=== PATIENT | female | born 1985 | race Caucasian/White ===

== ENCOUNTER 2024-11-26 08:06 | Outpatient (AMB) | payer MEDICARE, SELFPAY ==
--- NOTE | 2024-11-26 08:17 | A.OFFVIS_ITS ---
Vital Signs 11/26/24 08:51 Weight 142 lb BP 108/75 Blood Pressure Location Rt brachial Position Sitting Pulse 80 Pulse Source Palpation Intake Visit Reasons: Follow up, Discuss MRI Accompanied by: Mother Allergies Codeine Sulfate Allergy (Unknown, Uncoded 01/29/11 00:00) Ibuprofen Allergy (Unknown, Uncoded 01/29/11 00:00) Medication List - Last Reconciled 11/26/[address] CNP buprenorphine-naloxone 8-2 mg (Suboxone) 1 film buccal DAILY dextroamphetamine-amphetamine 10 mg (Adderall) 10 mg PO BID sumatriptan succinate 50 mg PO Q2-4H PRN tizanidine 4 mg PO BID PRN Is last menstrual period known: Yes (3 weeks ago ) Patient : No HPI Comments Details: Teresa is a 38-year-old female patient with a past medical history of opiate use disorder (severity approximately 9-10 years on Suboxone), ADHD, asthma, fatty liver disease, migraine, and mild Chiari 1 malformation with decompression surgery in July of 2023 at [facility]. Leading up to her Chiari decompression she reported occipital headaches, dizziness, and imbalance. Postoperatively after her Chiari decompression surgery in 2003, she developed a CSF leak. This was repaired in November of 2023. She has continue to follow at [facility] though were be sent evaluations have not been suggestive of any continued complications. I saw her last at [facility] at which time she reported improvement in her brain fog and headaches over the course of a month leading up to our visit. She did however continued to have some difficulties with sleep and had some ongoing fatigue in the morning. She was experiencing some residual diz ziness with positional changes. She was started on gabapentin 100 mg at bedtime with gradual increase to 100 mg 3 times daily. This was ordered in caution with combination Suboxone therapy. She had her most recent follow-up in September of 2024 at which time she reported again that headaches did continue but were less severe than prior. She did continue with a sense of brain fog during the day and headaches again were primarily occipital radiating to the front of her head. She reported some pain to the mid back area and had been working with primary Care to obtain x-ray imaging. At this most recent visit I started her on magnesium 400 mg nightly and continue the gabapentin. I also started a trial of tizanidine 4 mg twice daily for potential myofascial involvement. She is here today at [facility] to reestablish care with me in this facility. Sensitivity [facility] visit in September of 2024, Today she reports that she has good days and bad days . She is referred [facility] to [facility] who performed an MRI of her spine. She notes that they reported to her that she has a seroma on her spine and she was recommended to follow-up with neurosurgery. She has not yet seen neurosurgery to follow-up with this but [facility] did send a referral and imaging reports back to them. True headaches a couple times per week about 2 times per week but she feels that she can control them by rest and relaxation. They will then subside on their own typically but rarely will they last a few days. She used to take sumatriptan in the past which was helpful. Still sometimes having lightheadedness with dull headache.Headaches are accompanied by irratability, nausea, as well as light and sound sensitivity. She also notes that from time to time she has abnormal sensations to her BUE such as tingling and feelings of vibration. She does not have weakness or pain. She also has circumoral numbness which can extend to the right nares area. Review of Systems Const Reports as per HPI Neuro Reports Sensory deficit (Neuro) Physical Exam Const General: cooperative, healthy appearing, comfortable and no acute distress Nutritional Appearance: well nourished Orientation/consciousness: patient oriented x3 Limitations: no limitations HEENT Head: Yes normal to inspection and Yes normocephalic Eyes General: appearance normal, both eyes and all related structures Visual Walsh: normal visual walsh by confrontation Alignment and Position: alignment normal Periorbital: periorbital findings normal Eyelids: Yes eyelids normal Conjunctivae: conjunctivae normal Back/Spine/Pelvis Cervical Spine: Cervical spine scars present and other (tenderness to the c- spine midline with palpation ) Neuro General: patient oriented x3, tone normal and deep tendon reflexes 2+ bilaterally Cranial nerves: Yes CN's II-XII intact bilaterally Cognition (Neuro): normal cognition Gait exam (Neuro): Normal gait present Motor exam (neuro): 5/5 motor strength present throughout and no tremor noted Sensory Exam: Sensory deficit (Neuro) and Upper extremity sensory exam abnormal (BUE paresthesia with light touch ) Romberg Test: Negative Pupils: Normal pupillary reactivity/response: bilateral Psych Appearance: grossly normal Mental Status: mental status grossly normal Speech and movement: Normal speech and movement present and Clear speech present Affect: normal affect Attitude: cooperative Thought process: Normal thought process present Thought content: Normal thought content present Insight: Good insight present (Psych) Judgement: Good judgement present (Psych) Assessment & Plan Assessment & Plan (1) Occipital headache: Code(s): R51.9 - Headache, unspecified Category: Medical Plan: . (2) Neck pain after neck surgery: Code(s): M96.89 - Other intraoperative and postprocedural complications and disorders of the musculoskeletal system; M54.2 - Cervicalgia Category: Medical Plan: . Plan Teresa is a 38-year-old female patient with a past medical history of opiate use disorder (severity approximately 9-10 years on Suboxone), ADHD, asthma, fatty liver disease, migraine, and mild Chiari 1 malformation with decompression surgery in July of 2023 at [facility]. At this point, it seems possible but not clear if the seroma is playing a role in her symptoms. She also has a great deal of scar tissue to her neck area which may be causing some myofascial discomfort. Tizanidine has been helpful and I will continue her on this for management of myofascial involvement which may be triggering migraine/neck pain. I will also restart her on sumatriptan 50 mg for breakthrough migraine. It does seem like she may be having some vestibular migraine symptoms which maybe helped with use of sumatriptan. We could in the future consider starting her on a preventive therapy. I am hoping that [facility] sees her soon to evaluate the seroma. I will also attempt to obtain [facility] so I can review the study myself. -Follow-up with [facility] neurosurgery for seroma -Continue tizanidine 4mg -Re-start sumatriptan 50mg for breakthrough migraine -obtain imaging from [facility] Follow-up in 3 months Orders: Orders Folate Today R20.2 - Paresthesia of skin Methylmalonic Acid Today M54.2 - Cervicalgia, M96.89 - Other intraoperative and postprocedural complications and disorders of the musculoskeletal system Vitamin B12 Today M54.2 - Cervicalgia, M96.89 - Other intraoperative and postprocedural complications and disorders of the musculoskeletal system Coding Level of Care Code New Pt Level 4 (95904) Diagnoses Occipital headache R51.9 Neck pain after neck surgery M96.89; M54.2
--- OUTSIDE RECORDS SUMMARY | 2024-11-26 08:24 | XMS_ITS | Clinical Summary ---
Author Organization [facility] Address [address] [place] [address] Care Team Providers Care Turret Lathe Operator Name Role Phone Unavailable Primary Care Provider Unavailabl e Source Comments PLEASE NOTE, if this patient is a minor, it may be UNLAWFUL to discuss sensitive information that is contained in these records (such as FAMILY PLANNING, MENTAL HEALTH or SUBSTANCE ABUSE) with the minor patient's parent or other person without the patient's specific authorization.[facility] Allergies Active Allergy Reactions Criticality Noted Date Comments Ibuprofen 04/02/2013 Naproxen Sodium 04/02/2013 Medications albuterol sulfate hfa 90 mcg/actuation inhalerIndicatio ns:Mild intermittent asthma without complication (HHS-HCC) Inhale 2 Puffs into the lungs every 4 (four) hours as needed for wheezing. 1 Inhaler 3 02/14/20 16 Active budesonide-formo terol (SYMBICORT) 160-4.5 mcg/actuation inhalerIndicatio ns:Mild intermittent asthma without complication (HHS-HCC) Inhale 2 Puffs into the lungs 2 (two) times daily. 1 Inhaler 3 02/14/20 16 Active nebulizer accessoriesIndic ations:Mild intermittent asthma without complication (HHS-HCC) Use up to 4 times daily 1 Device 0 02/14/20 16 Active albuterol (ACCUNEB) 0.63 mg/3 mL nebulizer solutionIndicati ons:Mild intermittent asthma without complication (HHS-HCC) Take 3 mL by nebulization every 6 (six) hours as needed for wheezing. 50 Vial 2 02/14/20 16 Active montelukast (SINGULAIR) 10 mg tabletIndication s:Mild intermittent asthma without complication (HHS-HCC) Take 1 Tab by mouth nightly at bedtime. 30 Tab 5 02/14/20 16 Active hydrocortisone (ANUSOL-HC) 25 mg suppositoryIndic ations:External thrombosed hemorrhoids Place 1 Suppository rectally 2 (two) times daily 30 Suppository 2 08/08/19 17 Active triamcinolone (KENALOG) 0.025 % ointmentIndicati ons:Eczema of both hands Apply topically 2 (two) times daily 15 g 2 08/08/19 17 Active shark liver oil-cocoa butter (PREPARATION H) 0.25-3 % suppositoryIndic ations:Therapeut ic opioid induced constipation Place 1 Suppository rectally as needed for hemorrhoids 12 Suppository 5 08/10/19 17 Active sennosides-docus ate sodium (SENOKOT-S) 8.6-50 mg per tabletIndication s:Constipation due to opioid therapy Take 1 Tab by mouth once daily as needed for constipation 30 Tab 3 10/07/19 18 Active Active Problems Problem Noted Date Diagnosed Date Opioid abuse with unspecifie d opioid-induced disorder (CMS & HHS-HCC) 03/04/2016 Mild intermittent asthma without complication (H HS-HCC) 03/04/2016 Fatty infiltration of liver 03/31/2015 Overview (03/31/2015): CT Scan 03/24/2015 S/P cholecystectomy 10/01/2013 Social History Tobacco Use Types Packs/Day Years Used Date Smoking Tobacco: Former Alcohol Use Standard Drinks/Week Comments No 0 (1 standard drink = 0.6 oz pur e alcohol) Social Connections Answer Date Recorded Social Connections and Isolation 0 11/07/2018 Financial Resource Strain Answer Date R ecorded Financial Resource Strain 0 2018 Stress Answer Date Recorded Stress 0 11/07/2018 Physical Activity Answer Date Recorded Physical Activity 0 11/07/2018 Food Insecurity Answer Date Recorded Food 0 11/07/2018 Transportation Needs Answer Date Record ed Transportation 0 11/07/2018 Housing Stability Answer Date Recorded Housing 0 11/07/2018 Safety and Environment Answer Date Shola rded Safety 0 11/07/2018 Utilities Answer Date Recorded Utilities 0 11/07/2018 Employment Answer Date Recorded Employment 0 11/07/2018 Comments No Sex and Gender Information Value Date Recorded Sex Assigned at Not on file Legal Sex Female 11:36 AM PDT Gender Identity Not on file Sexual Orientation Not on file Last Filed Vital Signs Vital Sign Reading Time Taken Comments Blood Pressure 102/68 08/07/2016 3:38 PM EDT Pulse 76 08/07/2016 3:38 PM EDT Temperature 37.1 C (98.8 F) 08/07/2016 3:38 PM EDT Respiratory Rate 16 08/07/2016 3:38 PM EDT Oxygen Saturation - - Inhaled Oxygen Concentration - - Weight 56.2 kg (124 lb) 08/07/2016 3:38 PM EDT Height 149.9 cm (4' 11 ) 08/07/2016 3:38 PM EDT Body Mass Index 25.04 08/07/2016 3:38 PM EDT Plan of Treatment Not on file [place]
--- OUTSIDE RECORDS SUMMARY | 2024-11-26 08:24 | XMS_ITS | Encounter Summary ---
Author Organization [facility] Address [address] [place] [address] Care Team Providers Care Flume Worker Name Role Phone Lara Arteaga MD Primary Care Pr ovider Reason for Visit * Reason Onset Date Comments Breast Pain 11/24/2024 Encounter Details Date Type Department Care Team (Late st Contact Info) Description 11/24/2024 Telephone Adult Medicine [address] [phone] Lara Arteaga MD [address] [place] [address] Social History Tobacco Use Types Packs/Day Years Used Date Smoking Tobacco: Former Smokeless Tobacco: Never Alcohol Use Standard Drinks/Week Comments Yes 0 (1 standard drink = 0.6 oz pur e alcohol) Housing Instability Answer Date Recorde d Are you worried that in the next 2 months you may not have stable housing? No 03/26/2024 Food Access & Nutrition Answer Date Rec orded Do you have access to a vari ety of food including fruits and vegetables? Yes 03/26/2024 Health Literacy Answer Date Recorded How often do you need to hav e someone help you when you read instructions, pamphlets, or other written material from your doctor or pharmacy? Never 03/26/2024 Caregiver: How often do you need to have someone help you when you read instructions, pamphlets, or other written material from your doctor or pharmacy? Not on file 03/26/2024 Financial Risk Answer Date Recorded How hard is it for you to pa y for the very basics like food, housing, medical care, and air conditioning / heating? Not very hard 03/26/2024 Transportation Answer Date Recorded Has the lack of transportati on kept you from meetings, work, or from getting things needed for daily living? No Has the lack of transportati on kept you from medical appointments or from getting medications? No 03/26/2024 Social Isolation Answer Date Recorded How often do you feel lonely or isolated from th ose around you? Never 03/26/2024 Food Risk Answer Date Recorded Within the past 12 months we worried whether our food would run out before we got money to buy more. Never true 03/26/2024 Within the past 12 months th e food we bought just didn't last and we didn't have money to get more. Never true 03/26/2024 Dependent Care Answer Date Recorded Do you need help finding or paying for care for your loved ones. For example, childcare attendant or elderly care for an older adult? No 03/26/2024 Education Answer Date Recorded Do you think completing more education or training, like finishing a GED, going to college, or learning a trade, would be helpful for you? No 03/26/2024 Employment and Income Answer Date Recor ded During the last four weeks, have you been actively looking for work? No 03/26/2024 Living Situation Answer Date Recorded What is your living situation? 0 03/26/2024 Comments No Sex and Gender Information Value Date Recorded Sex Assigned at Not on file Legal Sex Female 12:18 AM EST Gender Identity Not on file Sexual Orientation Not on file documented as of this encounter Progress Notes * Lucinda Ames - 11/24/2024 8:44 AM EDT Patient call requires triage: Symptoms patient is presenting: left breast pain How long has patient had these symptoms?: 3 days For ALL patients calling to schedule any appointment (routine, sick visit, follow up, consult, etc.) in the outpatient setting please ask the following questions: Do you have fever of higher than 101, sore throat with difficulty swallowing or severe shortness ofbreath? no If YES to any of these above symptoms, send a message to triage and do not book. Red dot. If no, an audio or video visit should be booked. Have you had close contact with someone with Coronavirus in the last 14 days? no Have you traveled abroad? no Have you traveled recently to another state outside of [place], [place], [place], [place], [place], [place], [place]? no o If yes, did you quarantine for 14 days or have a negative covid test? no If yes to any of the above, patient is not to be scheduled in office until after 14 day quarantine or negative covid test. If pain or injury related was it due to an accident at work or from a motor vehicle accident? If yes, date of accident/Injury: No If yes, gather 3rd green party insurance information Third Alliance Party Information: N/A PCP: Lara Arteaga MD Payor: [facility] MEDICARE / Plan: [employer] ONE CARE / Product Type: *No Product type* / documented in this encounter Plan of Treatment Upcoming Encounters Date Type Department Care Team (Late st Contact Info) Description 12/07/2024 5:00 PM EDT Office [facility] [address] [place], [place] [phone] Kalia Busch MD [address] [place], [place] 12/15/2024 8:20 AM EDT Office Visit Gastroenterology - [place] [address] [place] [phone] Vasquez Grove MD [address] [place] [phone] documented as of this encounter Visit Diagnoses Not on filedocumented in this encounter Additional Health Concerns Assessment Noted Time PHQ-9 Depression Total Score: 0 04/14/19 25 10:40 AM EST documented as of this encounter Care Teams Flume Worker Relationship Specialty Start Date End Date Lara Arteaga MD [address] [place] [phone] PCP - General 04/09/22 documented as of this encounter
--- OUTSIDE RECORDS SUMMARY | 2024-11-26 08:24 | XMS_ITS | Clinical Summary ---
Author Organization [address] [facility] Address [address] [place] [address] Phone Care Team Providers Care Timekeeping Supervisor Name Role Phone Lara Arteaga MD Primary Care Pr ovider Allergies Active Allergy Reactions Criticality Noted Date Comments Codeine Nausea And Vomiting High 12/08/2008 Can take percocet ok Ibuprofen Anaphylaxis High 02/14/2006 Other Reaction(s): Hives/Urticaria, Numbness, tingling or swelling of the lips, tongue or mouth HIVES/ ? THROAT CLOSING? Naproxen Anaphylaxis High 04/02/2013 Other Reaction(s): Hives/Urticaria, Numbness, tingling or swelling of the lips, tongue or mouth Medications SUMAtriptan (IMITREX) 50 mg tablet May repeat dose once after 2 hours, if needed. 4 Active amphetamine-de xtroamphetamin e (ADDERALL) 10 mg tablet Take 1 Tablet by mouth 2 times daily. 1 tab po bid Active fluticasone furoate (ARNUITY ELLIPTA) 100 mcg/actuation blister with device inhaler Inhale 1 puff by mouth 1 (one) time each day. 1 each 4 01/19/20 25 Active Ventolin HFA 90 mcg/actuation inhaler INHALE 2 PUFFS BY MOUTH EVERY 4 HOURS NEEDED FOR WHEEZING OR SHORTNESS OF BREATH 18 g 5 Active omeprazole (PriLOSEC) [address] capsule Take 1 capsule (20 mg total) by mouth 1 (one) time each day. Active guanFACINE (INTUNIV) 1 mg 24 Hour ER tablet Take 1 tablet (1 mg total) by mouth 1 (one) time each day. 5 Active gabapentin (NEURONTIN) 100 mg capsule Take 1 capsule (100 mg total) by mouth at bedtime. 5 Active diazePAM (VALIUM) 5 mg tablet Take 1 tablet (5 mg total) by mouth at bedtime as needed. Active tiZANidine (ZANAFLEX) 4 mg tablet Take 1 tablet (4 mg total) by mouth 2 (two) times a day. 5 Active buprenorphine- naloxone (SUBOXONE) 8-[address] film [address] 1 film under the tongue 1 (one) time each day for 28 days. After the medication is completely dissolved, take a large sip of water, swish it around teeth and gums, and swallow. Wait at least 1 hour before brushing teeth to avoid damage to your teeth. Max Daily Amount: 1 film 28 each 5 12/08/19 25 Active buprenorphine- naloxone (SUBOXONE) 8-[address] SL film [address] 1 film under the tongue 1 (one) time each day for 28 days. After the medication is completely dissolved, take a large sip of water, swish it around teeth and gums, and swallow. Wait at least 1 hour before brushing teeth to avoid damage to your teeth. Max Daily Amount: 1 film 28 each 5 11/10/19 25 Discontinu ed(Reorder ) Active Problems Problem Noted Date Diagnosed Date Osteoarthritis of cervical spine with myelopathy 09/27/2024 Assessment & Plan (09/27/2024 12:51 PM EDT): See HPI. She will call [facility] to schedule an appointment Osteoarthritis of thoracic spine with myelopathy 09/27/2024 Assessment & Plan (09/27/2024 12:51 PM EDT): See HPI. She will call [facility] to schedule an appointment Osteoarthritis of lumbar spine with myelopathy 0 09/27/2024 Assessment & Plan (09/27/2024 12:51 PM EDT): See HPI. She will call [facility] to schedule an appointment Obesity (BMI 30.0-34.9) 04/14/2024 Assessment & Plan (09/27/2024 12:51 PM EDT): Encouraged to increase her exercise at least 30 minutes a day 5 days a week. Discussed that we have weight management at [facility] and she can be referred if she is interested. She would like to defer this for now and start exercising Assessment & Plan (04/14/2024 12:39 PM EST): Orders: Ambulatory referral to Nutrition Services; Future Hemoglobin A1c; Future Flat feet, bilateral 01/19/2024 Chiari I malformation (CMS/HCC V24, CMS/HCC V28) 11/12/2022 Overview (12/16/2023): MRI brain 10/09/22 ordered by Neurology Last Assessment & Plan: Ms. Valentine describes a multitude of complaints from migraines and brain fog with numbness and tingling in the hands and feet, dizziness, and electrical sensations traveling down her arms. Her MRI of the brain from [facility] on October 09, 2022 shows a Chiari I malformation with 5 to 6 mm of cerebellar tonsillar distention through the foramen magnum and some crowding of the brainstem. I told her I would review her films and story with Dr. Romero to see whether or not she thought a suboccipital craniectomy for Chiari decompression was reasonable. I told her I would be back in touch with her after discussing the situation with the doctor. Assessment & Plan (09/27/2024 12:51 PM EDT): Continue follow-up with [facility] neurology. Has an upcoming appointment this week Assessment & Plan (04/14/2024 12:39 PM EST): See HPI. She was in the emergency room on 03/26/2024 at [facility]. I do not have complete records for review but will addend my note once I do. MRI brain/CT angio head and neck which were done were reportedly negative. She notes she has already had follow-up with her neurosurgeon in [place] and was told no MR myelogram was indicated. I do not have notes from the neurosurgeon. She will follow-up with her neurologist at [facility] as scheduled next month. She will continue the baclofen as needed which she is using sparingly due to the medication making her feel sleepy. Will complete handicap placard for patient. She will drop off form Opioid abuse ([facility] V24, [facility] V28) 11/06/19 Overview (12/16/2023): Heroin- sober 2 years 03/2018 on suboxone 09/19/20: Suboxone 10mg daily through [facility] Assessment & Plan (09/27/2024 12:51 PM EDT): Continue with Suboxone daily. Continue follow-up with Dr. Busch Assessment & Plan (04/14/2024 12:39 PM EST): Continue with Suboxone as prescribed by Dr. Busch Chronic constipation 11/05/2017 Asthma 03/04/2016 Assessment & Plan (09/27/2024 12:51 PM EDT): Well-controlled. She has Arnuity(not using this daily) and albuterol to use as needed. Fatty liver 03/31/2015 Overview (12/16/2023): CT Scan 03/24/2015 PCOS (polycystic ovarian syndrome) 09/21/2007 Overview (12/16/2023): 10/23/20 Early glucose screen ordered. Migraine 10/16/2006 Assessment & Plan (09/27/2024 12:51 PM EDT): Continue sumatriptan as needed. Continue follow-up with [facility] neurology. Has an upcoming appointment this week Bipolar disorder ([facility] V24, [facility] V28) 06/15 Attention deficit hyperactivity disorder (ADHD) 06/25/2006 Assessment & Plan (09/27/2024 12:51 PM EDT): Ciontinue f/u with psychiatry Prescribed adderall,guanfacine and valium Heartburn 11/13/2005 Assessment & Plan (09/27/2024 12:51 PM EDT): Continue omeprazole 20 mg as needed Resolved Problems Problem Noted Date Diagnosed Date Resolved Date Back pain 12/22/2008 09/27/2024 Encounters Date Type Department Care Team Description 11/24/2024 Telephone Adult Medicine [address] [phone] Lara Arteaga MD 11/17/2024 9:20 AM EDT Consult Gastroenterology [address] [phone] Vasquez Grove MD Fatty liver (Primary Dx); PCOS (polycystic ovarian syndrome); Opioid abuse ([facility] V24, [facility] V28); History of cholecystectomy 11/17/2024 Telephone Gastroenterology [facility] [address] [phone] Vasquez Grove MD 11/12/2024 [place] [facility] [address] [phone] Manda Meng [place] 11/09/2024 5:00 PM EDT Office Visit [facility] [address] [place] [phone] Kalia Busch MD Drug dependence, in remission ([facility]/HCC V24, CMS/[facility] V28) (Primary Dx) 10/27/2024 8:29 AM EDT - 10/27/2024 11:59 PM EDT Hospital Encounter [facility] MRI [address] [place] [phone] Elevated bilirubin; RUQ pain; Common bile duct dilation Discharge Disposition: Home or Self Care 10/21/2024 8:24 AM EDT - 10/21/2024 11:59 PM EDT Hospital Encounter Ultrasound - [facility] [address] [place], [place] [phone] Elevated bilirubin; RUQ pain Discharge Disposition: Home or Self Care 10/12/2024 5:15 PM EDT Office Visit [facility] - [facility] [address] [place], [place] [phone] Kalia Busch MD Drug dependence, in remission ([facility] V24, [facility] V28) (Primary Dx) 09/27/2024 12:00 PM EDT Office Visit Adult Medicine [address] [phone] Lara Arteaga MD Annual physical exam (Primary Dx); Screening for metabolic disorder; Obesity (BMI 30.0-34.9); Opioid abuse ([facility] V24, [facility] V28); Chiari I malformation ([facility] V24, [facility] V28); Migraine without aura and without status migrainosus, not intractable; Mild persistent asthma without complication; Osteoarthritis of cervical spine with myelopathy; Osteoarthritis of thoracic spine with myelopathy; Osteoarthritis of lumbar spine with myelopathy; Irritation of ear, bilateral; Otalgia of both ears; Right wrist pain; Pain in both knees, unspecified chronicity; Heartburn; Other specified attention deficit hyperactivity disorder (ADHD); Encounter for screening mammogram for malignant neoplasm of breast 09/22/2024 3:05 PM EDT - 09/22/2024 11:59 PM EDT Hospital Encounter [address] [phone] Chronic neck pain Discharge Disposition: Home or Self Care 09/22/2024 3:05 PM EDT - 09/22/2024 11:59 PM EDT Hospital Encounter [address] [phone] Chronic back pain, unspecified back location, unspecified back pain laterality Discharge Disposition: Home or Self Care 09/22/2024 3:04 PM EDT - 09/22/2024 11:59 PM EDT Hospital Encounter [address] [phone] Chronic back pain, unspecified back location, unspecified back pain laterality Discharge Disposition: Home or Self Care 09/22/2024 2:15 PM EDT Office Visit Adult Medicine [address] [phone] Mary Grimes PA Skin lesion of face (Primary Dx); Chronic neck pain; Chronic back pain, unspecified back location, unspecified back pain laterality; Chiari I malformation ([facility] V24, [facility] V28) 09/09/2024 5:15 PM EDT Office Visit [facility]one - [facility] [address] [place], [place] [phone] Kalia Busch MD Drug dependence, in remission ([facility] V24, [facility] V28) (Primary Dx) from Last 3 Months Immunizations Name Administration Dates Next Due Influenza Quadravalent, MDCK , 0.5ml, preservative free (Flucelvax) 6mo and older 04/09/2022 Influenza trivalent, with pr eservative (Fluzone; Afluria) 6mo and older 01/05/2014,03/04/2006,01/24/2005 PPD Test 12/17/2005 Pneumococcal polysaccharide 23 valent (Pneumovax 23) 2yo and older 04/09/2022 Td Tetanus diptheria (Tdvax) 7yo and older 11/15 Tdap Tetanus diptheria acell ular pertussis (Boostrix; Adacel) 7yo and older 02/20/2021 Surgical History Surgery Date Site/Laterality Comments WRIST SURGERY 2003 Right PROCEDURE: HISTORICAL WRIST SURGERY; COMMENT: injury CHOLECYSTECTOMY 2009 PROCEDURE: HISTORICAL CHOLECYSTECTOMY MOUTH SURGERY PROCEDURE: ORAL SURGERY PROCEDURE; COMMENT: teeth extractions. Medical History Medical History Date Comments Heartburn 11/13/2005 DX:Heartburn Attention deficit disorder w ith hyperactivity(314.01) 06/25/2006 DX:Attention deficit disorde r with hyperactivity(314.01) Bipolar disorder, unspecifie d ([facility] V24, [facility] V28) 06/25/2006 DX:Bipolar disorder, unspec ified ([facility]) Migraine without aura, witho ut mention of intractable migraine without mention of status migrainosus 10/16/2006 DX:Migraine with out aura, without mention of intractable migraine without mention of status migrainosus PCOS (polycystic ovarian syndrome) 09/21/2007 DX:PCOS (polycystic ovarian syndrome) Sacroiliitis, not elsewhere classified ([facility] V24) 11/02/2008 DX:Sacroiliitis, not elsewhe re classified ([facility]) Chronic constipation 11/05/2017 DX:Chronic constipation Family history of breast cancer 04/15/2018 DX:Family history of breast cancer Heroin use disorder, severe, in sustained remission ([facility] V24, [facility] V28) DX:Heroin use disorder, lilibeth re, in sustained remission ([facility]) H/O thoracic outlet syndrome DX: H/O thoracic outlet syndrome; COMMENT: sees physiatry prn Asthma DX:Asthma History of posttraumatic str ess disorder (PTSD) DX:History of posttraumatic stress disorder (PTSD); COMMENT: has counselor (PTSD from bad relationship in 2007) BRCA negative DX:BRCA negative Family History Medical History Relation Name Comments Other: endometriosis Aunt maternal and mat ernal 1st cousin Hypertension Father obesity, GERD, KAREN, gout Lung cancer Maternal Grandfather with me ts to liver; alcohol abuse Hypertension Maternal Grandmother HLD, de pression Breast cancer Mother left 22 (lumpe ctomy), age 50 (surgery/radiation), and again 58 (surgery), ALL LEFT SIDE; HTN, HLD, GERD Breast cancer Mother's side great aunt Dx 40-50's? l aterality? Heart failure Paternal Grandfather Alzheimer's disease Paternal Grandmother COPD Migraines Sister PCOS Hypertension Uncle 1 maternal DVT Other cancer Uncle 2 paternal unknown type Colon cancer Neg Hx Relation Name Status Comments Aunt maternal Alive Father Alive Maternal Grandfather (Age 60) Maternal Grandmother Alive Mother Alive BRCA negative Mother's side great aunt Paternal Grandfather Paternal Grandmother (Age 86) Sister Alive Uncle 1 maternal Alive Uncle 2 paternal Social History Tobacco Use Types Packs/Day Years Used Date Smoking Tobacco: Former Smokeless Tobacco: Never Tobacco Cessation:Counseling Given: Not Answered Alcohol Use Standard Drinks/Week Comments Yes 0 [...] care for your loved ones. For example, children counselor or elderly care for an older adult? [...] on file Sexual Orientation Not on file Obstetrics History Last Filed Vital Signs Vital Sign Reading Time Taken Comments Blood Pressure 112/72 11/17/2024 9:21 AM EDT Pulse 74 11/17/2024 9:21 AM EDT Temperature 36.4 C (97.5 F) 11/09/2024 5:50 PM EDT Respiratory Rate 16 09/27/2024 12:01 PM EDT Oxygen Saturation 98% 10/12/2024 5:23 PM EDT Inhaled Oxygen Concentration - - Weight 64 kg (141 lb) 11/17/2024 9:21 AM EDT Height 149.9 cm (4' 11 ) 11/17/2024 9:21 AM EDT Body Mass Index 28.48 11/17/2024 9:21 AM EDT Plan of Treatment Upcoming Encounters Date Type Department Care Team (Late st Contact Info) Description 12/07/2024 5:00 PM EDT Office Visit [facility] [address] [place], [place] [phone] Kalia Busch MD [address] [place], [place] 12/15/2024 8:20 AM EDT Office Visit Gastroenterology - [place] [address] [place] [phone] Vasquez Grove MD [address] [place] [phone] Health Maintenance Due Date Last Done Comments Medicare Annual Wellness Visit 02/23/2022 COVID-19 Vaccine ( season) 2024 Influenza Vaccine (#1) 2024 , 01/05/2014, 03/04/2006, Additional history exists Social Influencers of Health Screening 03/26/2025 03/26/2024 Cervical Cancer Screening: HPV 11/03/2025 11/03/2020 Cholesterol Screening (Lipid Panel) 09/29/2029 09/29/2024, 01/06/2024, 05/08/2022 DTaP,Tdap,and Td Vaccines (4 - Td or Tdap) 02/20/2031 02/20/2021, 03/12/2015, 11/16/2003 HIV Screening Completed 10/27/2020 Pneumococcal Vaccine: Pediatrics (0 to 5 Years) and At-Risk Patients (6 to 49 Years) Discontinued 04/09/2022 Depression Screening Completed 04/14/2024 Hepatitis C Screening Completed 11/17/2024, 021 HIB Vaccines Aged Out No longer eligi ble based on patient's age to complete this topic HPV Vaccines Aged Out No longer eligi ble based on patient's age to complete this topic Hepatitis A Vaccines Discontinued Hepatitis B Vaccines Discontinued IPV Vaccines Aged Out No longer eligi ble based on patient's age to complete this topic MMR Vaccines Aged Out No longer eligi ble based on patient's age to complete this topic Meningococcal ACWY Vaccine Aged Out N o longer eligible based on patient's age to complete this topic Meningococcal B Vaccine Aged Out No l onger eligible based on patient's age to complete this topic RSV Immunization Patients Under 20 months Aged Out No longer eligible based on patient's age to complete this topic Varicella Vaccines Aged Out No longer eligible based on patient's age to complete this topic Procedures Procedure Name Priority Date/Time Associated Diagnosis Comments HEPATITIS PANEL, ACUTE WITH REFLEX TO CONFIRMATION Routine 11/17/2024 10:00 AM EDT Fatty liver PROTHROMBIN TIME WITH INR Routine 11/17/2024 10:00 AM EDT Fatty liver HEPATIC FUNCTION PANEL Routine 10:00 AM EDT Hyperbilirubinemia POC , URINE DIAGNOSTIC Routine 11/09/2024 6:02 PM EDT Drug dependence, in remission (CMS/HCC V24, CMS/HCC V28) POC URINE DRUG SCREEN Routine 11/09/2024 6:02 PM EDT Drug dependence, in remission (CMS/HCC V24, CMS/HCC V28) MR ABDOMEN WO AND W CONTRAST MRCP Routine 10/27/2024 10:04 AM EDT Elevated bilirubin RUQ pain Common bile duct dilation US ABDOMEN LIMITED Routine 10/21/2024 8: 53 AM EDT Elevated bilirubin RUQ pain POC , URINE DIAGNOSTIC Routine 10/12/2024 5:31 PM EDT Drug dependence, in remission (CMS/HCC V24, CMS/HCC V28) POC URINE DRUG SCREEN Routine 10/12/2024 5:30 PM EDT Drug dependence, in remission (CMS/HCC V24, CMS/HCC V28) CBC WITH AUTO DIFFERENTIAL Routine 09/29/2024 9:08 AM EDT Screening for metabolic disorder LIPID PANEL WITH REFLEX TO DIRECT LDL Routine 09/29/2024 9:08 AM EDT Screening for metabolic disorder CBC AND DIFFERENTIAL Routine 09/29/2024 9:08 AM EDT Screening for metabolic disorder COMPREHENSIVE METABOLIC PANEL Routine 09/29/2024 9:08 AM EDT Screening for metabolic disorder XR LUMBAR SPINE 4+ VIEWS Routine 09/22/2024 3:18 PM EDT Chronic back pain, unspecified back location, unspecified back pain laterality XR THORACIC SPINE 2 VIEWS Routine 09/22/2024 3:18 PM EDT Chronic back pain, unspecified back location, unspecified back pain laterality XR CERVICAL SPINE 4-5 VIEWS Routine 09/22/2024 3:18 PM EDT Chronic neck pain POC , URINE DIAGNOSTIC Routine 09/09/2024 5:18 PM EDT Drug dependence, in remission (CMS/HCC V24, CMS/HCC V28) POC URINE DRUG SCREEN Routine 09/09/2024 5:18 PM EDT Drug dependence, in remission (CMS/HCC V24, CMS/HCC V28) HM HPV Routine 11/03/2020 HM HIV SCREENING Routine 10/27/2020 from Last 3 Months or Most Recently Relevant to Health Maintenance Results * Hepatitis panel, acute with reflex to confirmation (11/17/2024 10:00 AM EDT) [facility] Hepatitis B Surface Ag Negative Negative LAB CHEMISTRY METHOD 11/17/2024 5:43 PM EDT [facility] Hepatitis A Antibody IgM Negative Negative LAB CHEMISTRY METHOD 11/17/2024 5:43 PM EDT [facility] Hep B Core IgM Negative Negative LAB CHEMISTRY METHOD 11/17/2024 5:43 PM EDT [facility] Hepatitis C Antibody Negative Negative LAB CHEMISTRY METHOD 11/17/2024 5:43 PM EDT [facility] Blood Venous blood specimen / Unknown Venipuncture / Unknown 11/17/2024 10:00 AM EDT 11/17/2024 10:00 AM EDT us Vasquez Grove MD LAB BLOOD ORDERABLES Final Resul t Performing Organization Address City/[facility]/ZIP Co de Phone Number [facility] [address] [place] [address], [place] [phone] * Prothrombin time with INR (11/17/2024 10:00 AM EDT) [facility] Protime 12.1 10.6 - 13.9 sec LAB COAGULATION METHOD 11/17/2024 2:17 PM EDT [facility] INR 1.0 LAB COAGULATION METHOD 11/17/2024 2:17 PM EDT [facility] Blood Venous blood specimen / Unknown Venipuncture / Unknown 11/17/2024 10:00 AM EDT 11/17/2024 10:00 AM EDT us Vasquez Grove MD LAB BLOOD ORDERABLES Final Resul t [facility] [address] [place] [address], [place] [phone] * (ABNORMAL) Hepatic function panel (11/17/2024 10:00 AM EDT) Total Protein 7.1 6.0 - 8.0 g/dL LAB CHEMISTRY METHOD 11/17/2024 3:29 PM EDT [facility] Albumin 4.0 3.2 - 5.0 g/dL LAB CHEMISTRY METHOD 11/17/2024 3:29 PM EDT [facility] Total Bilirubin 1.7(H) 0.0 - 1.4 mg/dL LAB CHEMISTRY METHOD 11/17/2024 3:29 PM EDT [facility] Bilirubin, Direct 0.4(H) 0.0 - 0.3 mg/dL LAB CHEMISTRY METHOD 11/17/2024 3:29 PM EDT [facility] Bilirubin, Indirect 1.3(H) 0.0 - 1.1 mg/dL LAB CHEMISTRY METHOD 11/17/2024 3:29 PM EDT [facility] ALT (SGPT) 40 10 - 60 unit/L LAB CHEMISTRY METHOD 11/17/2024 3:29 PM [facility] AST (SGOT) 36 10 - 42 unit/L LAB CHEMISTRY METHOD 11/17/2024 3:29 PM EDT [facility] Alkaline Phosphatase 55 42 - 121 unit/L LAB CHEMISTRY METHOD 11/17/2024 3:29 PM T [facility] Blood Venous blood specimen / Unknown Venipuncture / Unknown 11/17/2024 10:00 AM EDT 11/17/2024 10:00 AM EDT Lara Arteaga MD LAB BLOOD ORDERA BLES Final Result [facility] [address] [place] [address], * (ABNORMAL) POC Urine Drug Screen (11/09/2024 6:02 PM EDT) Only the most recent of3 resultswithin the time period is included. Amphetamine Screen, Ur POC Negative Negative Barbituates, Ur POC Negative Negative Benzodiazepines, Ur POC Negative Negative Buprenorphine, Ur POC Positive(A) Negative Cocaine, Ur POC Negative Negative MDMA Ur POC Negative Negative Methamphetamine Screen, Ur POC Negative Negative Methadone, Ur POC Negative Negative Opiate Scrn, Ur POC Negative Negative Oxycodone Scrn, Ur POC Negative Negative PCP, Ur POC Negative Negative THC, Ur POC Negative Negative Temperature, Ur POC 94 Urine Urine specimen obtained by clean catch procedure / Unknown 11/09/2024 6:02 PM EDT us Kalia Busch MD POINT OF CARE TEST ENTER/EDIT OR DERABLES Final Result * POC , urine manually resulted (11/09/2024 6:02 PM EDT) Only the most recent of3 resultswithin the time period is included. HCG, Ur POC Negative Negative POC hCG Int QC Pass? Yes Yes Urine Urine specimen obtained by clean catch procedure / Unknown 11/09/2024 6:02 PM EDT us Kalia Busch MD POINT OF CARE TEST ENTER/EDIT OR DERABLES Final Result * MR Abdomen wo and w Contrast MRCP (10/27/2024 10:04 AM EDT) Anatomical Region Laterality Modality Body Magnetic Resonan ce 10/27/2024 12:3 1 PM EDT Impressions 10/27/2024 12:52 PM EDT Cholecystectomy. Unchanged biliary duct dilatation dating back to 2016, most related to postcholecystectomy reservoir effect. No choledocholithiasis or obstructing mass. Severe hepatic steatosis. -------- FINAL REPORT -------- Dictated By: DONN DELUNA Dictated Date: 10/27/2024 12:31 ET Assigned Physician: DONN DELUNA Reviewed and Electronically Signed By: DONN DELUNA Signed Date: 10/27/2024 12:52 ET Workstation ID: [id number] Transcribed By: Self Edit Transcribed Date: 10/27/2024 12:31 ET Narrative 10/27/2024 12:52 PM EDT PROCEDURE: Abdominal MRI INDICATION: Dilated duct, elevated bilirubin TECHNIQUE: Multiplanar, multisequence MRI of the abdomen without and with contrast. 15 mL Dotarem injected intravenously from a 15 mL vial with the remainder discarded. COMPARISON: Ultrasound 10/21/[address] 03/24/2015 FINDINGS: Severe hepatic steatosis with regions of geographic relative sparing. No focal liver lesions or abnormal hepatic enhancement. Cholecystectomy. Biliary duct dilatation without obstructing stone or mass. Common bile duct measures up to 12 mm, similar dating back to 2015. No pancreatic mass or ductal dilatation. There is fatty infiltration of the pancreatic head. Spleen and adrenal glands are normal. Kidneys are normal. Abdominal aorta is normal in size. Portal vein is patent. Small left-sided duplicated IVC partially imaged. No bowel obstruction or wall thickening. Large stool throughout the colon. No ascites or fluid collection. Visualized intrathoracic structures and superficial soft tissues are normal. Bones are normal. Procedure Note Donn Deluna MD - 10/27/2024 PROCEDURE: Abdominal MRI INDICATION: Dilated duct, elevated bilirubin TECHNIQUE: Multiplanar, multisequence MRI of the abdomen without and withcontrast. 15 mL Dotarem injected intravenously from a 15 mL vial with theremainder discarded. COMPARISON: Ultrasound 10/21/[address] 03/24/2015 FINDINGS: Severe hepatic steatosis with regions of geographic relative sparing. Nofocal liver lesions or abnormal hepatic enhancement. Cholecystectomy. Biliary duct dilatation without obstructing stone ormass. Common bile duct measures up to 12 mm, similar dating back [id number]. No pancreatic mass or ductal dilatation. There is fatty infiltration ofthe pancreatic head. Spleen and adrenal glands are normal. Kidneys are normal. Abdominal aorta is normal in size. Portal vein is patent. Smallleft-sided duplicated IVC partially imaged. No bowel obstruction or wall thickening. Large stool throughout thecolon. No ascites or fluid collection. Visualized intrathoracic structures and superficial soft tissues arenormal. Bones are normal. IMPRESSION: Cholecystectomy. Unchanged biliary duct dilatation dating back to 2015,most related to postcholecystectomy reservoir effect. Nocholedocholithiasis or obstructing mass. Severe hepatic steatosis. -------- FINAL REPORT -------- Dictated By: DONN DELUNA Dictated Date: 10/27/2024 12:31 ET Assigned Physician: DONN DELUNA Reviewed and Electronically Signed By: DONN DELUNA Signed Date: 10/27/2024 12:52 ET Workstation ID: [id number] Transcribed By: Self Edit Transcribed Date: 10/27/2024 12:31 ET us Lara Arteaga MD IMG MRI PROCEDUR ES Final Result * US Abdomen Limited (10/21/2024 8:53 AM EDT) Anatomical Region Laterality Modality Body Ultrasound 10/21/2024 1:52 PM EDT Impressions 10/21/2024 1:55 PM EDT 1. Hepatic steatosis 2. Prominence of the common bile duct measuring 1.7 cm which may be due to removal of gallbladder. In a patient with elevated bilirubin, MRI/MRCP abdomen can also be considered to evaluate for biliary system. -------- FINAL REPORT -------- Dictated By: Maicol Nash Dictated Date: 10/21/2024 13:52 ET Assigned Physician: Maicol Nash Reviewed and Electronically Signed By: Maicol Nash Signed Date: 10/21/2024 13:55 ET Workstation ID: [id number] Transcribed By: Self Edit Transcribed Date: 10/21/2024 13:52 ET Narrative 10/21/2024 1:55 PM EDT Exam: Right upper quadrant ultrasound/US Limited History: elevated bilirubin, RUQ Pain Technique: Marinelli scale and color Doppler imaging was utilized. Comparison: None FINDINGS: Liver: increasedin echotexture. The liver measures 16.8 cm.There is no evidence of intrahepatic biliary ductal dilation. There is no ascites. Gallbladder: status post cholecystectomy Common bile duct: measures 1.7 cm. Right kidney: measures 10.6 cm and is sonographically unremarkable Pancreas: The visualized pancreatic parenchyma is unremarkable. The pancreatic head and tail were not visualized due to overlying bowel gas. Procedure Note Maicol Nash MD - 10/21/2024 Exam: Right upper quadrant ultrasound/US Limited History: elevated bilirubin, RUQ Pain Technique: Marinelli scale and color Doppler imaging was utilized. Comparison: None FINDINGS: Liver: increasedin echotexture. The liver measures 16.8 cm.There is noevidence of intrahepatic biliary ductal dilation. There is no ascites. Gallbladder: status post cholecystectomy Common bile duct: measures 1.7 cm. Right kidney: measures 10.6 cm and is sonographically unremarkable Pancreas: The visualized pancreatic parenchyma is unremarkable. Thepancreatic head and tail were not visualized due to overlying bowel gas. IMPRESSION: 1. Hepatic steatosis 2. Prominence of the common bile duct measuring 1.7 cm which may be due toremoval of gallbladder. In a patient with elevated bilirubin, MRI/MRCPabdomen can also be considered to evaluate for biliary system. -------- FINAL REPORT -------- Dictated By: Maicol Nash Dictated Date: 10/21/2024 13:52 ET Assigned Physician: Maicol Nash Reviewed and Electronically Signed By: Maicol Nash Signed Date: 10/21/2024 13:55 ET Workstation ID: [id number] Transcribed By: Self Edit Transcribed Date: 10/21/2024 13:52 ET us Lara Arteaga MD IMG US PROCEDURE S Final Result * Lipid panel with reflex to direct LDL (09/29/2024 9:08 AM EDT) Cholesterol 139 0 - 200 mg/dL LAB CHEMISTRY METHOD 09/29/2024 4:00 PM EDT [facility] Triglycerides 78 0 - 150 mg/dL LAB CHEMISTRY METHOD 09/29/2024 4:00 PM EDT [facility] HDL 58 >=40 mg/dL LAB CHEMISTRY METHOD 09/29/2024 4:00 PM EDT [facility] LDL Calculated 65 0 - 100 mg/dL LAB CHEMISTRY METHOD 09/29/2024 4:00 PM EDT [facility] VLDL Cholesterol Raul 15.6 mg/dL LAB CHEMISTRY METHOD 09/29/2024 4:00 PM EDT [facility] Non HDL Chol. (LDL+VLDL) 81 <145 mg/dL LAB CHEMISTRY METHOD 09/29/2024 4:00 PM EDT [facility] Chol/HDL Ratio 2.4 0.0 - 4.4 LAB CHEMISTRY METHOD 09/29/2024 4:00 PM EDT [facility] Blood Venous blood specimen / Unknown Venipuncture / Unknown 09/29/2024 9:08 AM EDT 09/29/2024 9:09 AM EDT Lara Arteaga MD LAB BLOOD ORDERA BLES Final Result [facility] [address] [place] [address], * CBC auto differential (09/29/2024 9:08 AM EDT) WBC 5.8 4.8 - 10.8 K/mcL LAB HEMETOLOGY METHOD 09/29/2024 1:31 PM [facility] RBC 4.60 3.80 - 4.80 M/mcL LAB HEMETOLOGY METHOD 09/29/2024 1:31 PM EDT [facility] Hemoglobin 13.6 11.5 - 16.0 g/dL LAB HEMETOLOGY METHOD 09/29/2024 1:31 PM EDT [facility] Hematocrit 40.8 35.0 - 47.0 % [facility] MCV 88.1 79.0 - 98.0 FL LAB HEMETOLOGY METHOD 09/29/2024 1:31 PM [facility] MCH 29.4 27.0 - 32.0 pcg LAB HEMETOLOGY METHOD 09/29/2024 1:31 PM EDT [facility] MCHC 33.3 32.0 - 37.0 g/dL LAB HEMETOLOGY METHOD 09/29/2024 1:31 PM [facility] RDW 13.2 11.0 - 15.0 % LAB HEMETOLOGY METHOD 09/29/2024 1:31 PM [facility] Platelets 244 130 - 400 K/mcL LAB HEMETOLOGY METHOD 09/29/2024 1:31 PM [facility] MPV 9.2 7.0 - 11.0 FL LAB HEMETOLOGY METHOD 09/29/2024 1:31 PM [facility] NRBC 0.0 <1.0 % LAB HEMETOLOGY METHOD 09/29/2024 1:31 PM [facility] NRBC Absolute 0.00 <0.10 K/mcL LAB HEMETOLOGY METHOD 09/29/2024 1:31 PM [facility] Neutrophils Relative 42.5 % LAB HEMETOLOGY METHOD 09/29/2024 1:31 PM [facility] Lymphocytes Relative 40.9 % LAB HEMETOLOGY METHOD 09/29/2024 1:31 PM [facility] Monocytes Relative 12.8 % LAB HEMETOLOGY METHOD 09/29/2024 1:31 PM [facility] Eosinophils Relative 2.9 % LAB HEMETOLOGY METHOD 09/29/2024 1:31 PM [facility] Basophils Relative 0.7 % LAB HEMETOLOGY METHOD 09/29/2024 1:31 PM [facility] Immature Granulocytes Relative 0.2 % LAB HEMETOLOGY METHOD 09/29/2024 1:31 PM [facility] Neutrophils Absolute 2.47 1.50 - 7.00 K/mcL LAB HEMETOLOGY METHOD 09/29/2024 1:31 PM EDT [facility] Lymphocytes Absolute 2.37 1.00 - 5.00 K/[facility] LAB HEMETOLOGY METHOD 09/29/2024 1:31 PM EDT [facility] Monocytes Absolute 0.74 0.20 - 1.00 K/[facility] LAB HEMETOLOGY METHOD 09/29/2024 1:31 PM EDT [facility] Eosinophils Absolute 0.17 0.00 - 0.50 K/[facility] LAB HEMETOLOGY METHOD 09/29/2024 1:31 PM EDT [facility] Basophils Absolute 0.04 0.00 - 0.20 K/[facility] LAB HEMETOLOGY METHOD 09/29/2024 1:31 PM EDT [facility] Immature Granulocytes Absolute 0.01 0.00 - 0.03 K/[facility] LAB HEMETOLOGY METHOD 09/29/2024 1:31 PM EDT [facility] Blood Venous blood specimen / Unknown Venipuncture / Unknown 09/29/2024 9:08 AM EDT 09/29/2024 9:09 AM EDT Lara Arteaga MD LAB BLOOD ORDERA BLES Final Result [facility] [address] [place] [address], * (ABNORMAL) Comprehensive metabolic panel (09/29/2024 9:08 AM EDT) Sodium 140 133 - 145 mmol/L LAB CHEMISTRY METHOD 09/29/2024 4:00 PM EDT [facility] Potassium 3.9 3.5 - 5.5 mmol/L LAB CHEMISTRY METHOD 09/29/2024 4:00 PM EDT [facility] Chloride 106 96 - 110 mmol/L LAB CHEMISTRY METHOD 09/29/2024 4:00 PM [facility] CO2 28 21 - 32 mmol/L LAB CHEMISTRY METHOD 09/29/2024 4:00 PM [facility] Anion Gap 6 3 - 11 LAB CHEMISTRY METHOD 09/29/2024 4:00 PM [facility] Glucose 98 70 - 100 mg/dL LAB CHEMISTRY METHOD 09/29/2024 4:00 PM [facility] BUN 13 5 - 25 mg/dL LAB CHEMISTRY METHOD 09/29/2024 4:00 PM [facility] Creatinine 0.92 0.50 - 1.10 mg/dL LAB CHEMISTRY METHOD 09/29/2024 4:00 PM [facility] eGFR 82 >=60 mL/min/1. 73m2 LAB CHEMISTRY METHOD 09/29/2024 4:00 PM [facility] Comment:Calculation based on the Chronic Kidney Disease Epidemiology Collaboration (CKD-EPI) equation refit without adjustment for race. BUN/Creatinine Ratio 14.1 LAB CHEMISTRY METHOD 09/29/2024 4:00 PM [facility] Calcium 9.1 8.5 - 10.5 mg/dL LAB CHEMISTRY METHOD 09/29/2024 4:00 PM [facility] AST (SGOT) 40 10 - 42 unit/L LAB CHEMISTRY METHOD 09/29/2024 4:00 PM [facility] ALT (SGPT) 50 10 - 60 unit/L LAB CHEMISTRY METHOD 09/29/2024 4:00 PM [facility] Alkaline Phosphatase 60 42 - 121 unit/L LAB CHEMISTRY METHOD 09/29/2024 4:00 PM [facility] Total Protein 7.2 6.0 - 8.0 g/dL LAB CHEMISTRY METHOD 09/29/2024 4:00 PM [facility] Albumin 3.9 3.2 - 5.0 g/dL LAB CHEMISTRY METHOD 09/29/2024 4:00 PM EDT [facility] Total Bilirubin 1.8(H) 0.0 - 1.4 mg/dL LAB CHEMISTRY METHOD 09/29/2024 4:00 PM EDT [facility] Blood Venous blood specimen / Unknown Venipuncture / Unknown 09/29/2024 9:08 AM EDT 09/29/2024 9:09 AM EDT Lara Arteaga MD LAB BLOOD ORDERA BLES Final Result [facility] [address] [place] [address], [place] [phone] * XR Lumbar Spine 4+ Views (09/22/2024 3:18 PM EDT) Anatomical Region Laterality Modality Spine, L-spine Radiographic Estefania ging 09/22/2024 3:43 PM EDT Impressions 09/22/2024 3:45 PM EDT Mild degenerative changes as described. -------- FINAL REPORT -------- Dictated By: Lidia Islas Dictated Date: 09/22/2024 15:43 ET Assigned Physician: Lidia Islas Reviewed and Electronically Signed By: Lidia Islas Signed Date: 09/22/2024 15:45 ET Workstation ID: [id number] Transcribed By: Self Edit Transcribed Date: 09/22/2024 15:43 ET Narrative 09/22/2024 3:45 PM EDT LUMBOSACRAL SPINE, 4 VIEWS INCLUDING OBLIQUES, Standing HISTORY: Low back pain. FINDINGS: There is normal alignment of the lumbosacral spine. No fractures are seen. There is mild endplate spurring at L3-4 and L4-5. There is mild facet hypertrophy at L5-S1. There are surgical clips in the right upper quadrant. Procedure Note Lidia Islas MD - 09/22/2024 LUMBOSACRAL SPINE, 4 VIEWS INCLUDING OBLIQUES, Standing HISTORY: Low back pain. FINDINGS: There is normal alignment of the lumbosacral spine. No fractures areseen. There is mild endplate spurring at L3-4 and L4-5. There is mild facet hypertrophy at L5-S1. There are surgical clips in the right upper quadrant. IMPRESSION: Mild degenerative changes as described. -------- FINAL REPORT -------- Dictated By: Lidia Islas Dictated Date: 09/22/2024 15:43 ET Assigned Physician: Lidia Islas Reviewed and Electronically Signed By: Lidia Islas Signed Date: 09/22/2024 15:45 ET Workstation ID: [id number] Transcribed By: Self Edit Transcribed Date: 09/22/2024 15:43 ET Mary ESCALANTE IMG XR PROCEDURES Final Resul t * XR Thoracic Spine 2 Views (09/22/2024 3:18 PM EDT) Anatomical Region Laterality Modality Spine, T-spine Radiographic Estefania ging 09/22/2024 3:49 PM EDT Impressions 09/22/2024 3:59 PM EDT Minor curvature and degenerative changes. No acute findings. -------- FINAL REPORT -------- Dictated By: Lidia Islas Dictated Date: 09/22/2024 15:49 ET Assigned Physician: Lidia Islas Reviewed and Electronically Signed By: Lidia Islas Signed Date: 09/22/2024 15:59 ET Workstation ID: [id number] Transcribed By: Self Edit Transcribed Date: 09/22/2024 15:49 ET Narrative 09/22/2024 3:59 PM EDT THORACIC SPINE, 2 VIEWS HISTORY: Mid back pain. FINDINGS: There is minor curvature of the thoracic spine. No fractures are seen. Vertebral body heights are maintained. Visualized portions of the lungs are clear. There is minor multilevel anterior endplate spurring. There are surgical clips in the upper abdomen. Procedure Note Lidia Islas MD - 09/22/2024 THORACIC SPINE, 2 VIEWS HISTORY: Mid back pain. FINDINGS: There is minor curvature of the thoracic spine. No fractures are seen. Vertebral body heights are maintained. Visualizedportions of the lungs are clear. There is minor multilevel anterior endplate spurring. There are surgical clips in the upper abdomen. IMPRESSION: Minor curvature and degenerative changes. No acute findings. -------- FINAL REPORT -------- Dictated By: Lidia Islas Dictated Date: 09/22/2024 15:49 ET Assigned Physician: Lidia Islas Reviewed and Electronically Signed By: Lidia Islas Signed Date: 09/22/2024 15:59 ET Workstation ID: [id number] Transcribed By: Self Edit Transcribed Date: 09/22/2024 15:49 ET us Mary ESCALANTE IMG XR PROCEDURES Final Resul t * XR Cervical Spine 4-5 Views (09/22/2024 3:18 PM EDT) Anatomical Region Laterality Modality Spine, C-spine Radiographic Estefania ging 09/22/2024 3:45 PM EDT Impressions 09/22/2024 3:48 PM EDT Mild degenerative changes as described, not significantly changed. -------- FINAL REPORT -------- Dictated By: Lidia Islas Dictated Date: 09/22/2024 15:45 ET Assigned Physician: Lidia Islas Reviewed and Electronically Signed By: Lidia Islas Signed Date: 09/22/2024 15:48 ET Workstation ID: [id number] Transcribed By: Self Edit Transcribed Date: 09/22/2024 15:45 ET Narrative 09/22/2024 3:48 PM EDT CERVICAL SPINE, 4 VIEWS HISTORY: Neck pain. History of Chiari malformation. Prior: Cervical spine 04/14/2018. FINDINGS: There is abnormal configuration of the dens tip, which is angled posteriorly, and this is unchanged. No fracture or dislocation is seen. The paravertebral soft tissues are unremarkable. There is minor endplate spurring at C3-4 and C5-6. There is mild bilateral neural foraminal narrowing from osteophytes at C4-5 and C5-6. Procedure Note Lidia Islas MD - 09/22/2024 CERVICAL SPINE, 4 VIEWS HISTORY: Neck pain. History of Chiari malformation. Prior: Cervical spine 04/14/2018. FINDINGS: There is abnormal configuration of the dens tip, which is angledposteriorly, and this is unchanged. No fracture or dislocation is seen. The paravertebral soft tissues areunremarkable. There is minor endplate spurring at C3-4 and C5-6. There is mild bilateral neural foraminal narrowing from osteophytes atC4-5 and C5-6. IMPRESSION: Mild degenerative changes as described, not significantly changed. -------- FINAL REPORT -------- Dictated By: Lidia Islas Dictated Date: 09/22/2024 15:45 ET Assigned Physician: Lidia Islas Reviewed and Electronically Signed By: Lidia Islas Signed Date: 09/22/2024 15:48 ET Workstation ID: [id number] Transcribed By: Self Edit Transcribed Date: 09/22/2024 15:45 ET Mary ESCALANTE IMG XR PROCEDURES Final Resul t * Cervical Cancer Screening: HPV (11/03/2020) Pathologist [facility] Cervical Cancer Screening: HPV Abstracted ,Negative Historical Provider HEALTH MAINTENANCE Final Result * HIV Screening (10/27/2020) Pathologist [facility] HIV Screening Abstracted Historical Provider HEALTH MAINTENANCE Final Result from Last 3 Months or Most Recently Relevant to Health Maintenance Insurance Member Subscriber Plan / Payer (Ef fective 2022-Present) Name:TERESA VALENTINE Relation to Subscriber:Self Name:Teresa Valentine Payer ID:[id number] Group ID:[id number] Type:Not on file Address: [facility] [address] [id number] Care Teams Timekeeping Supervisor Relationship Specialty Start Date End Date Lara Arteaga MD [address] [place] [address] [phone] PCP - General 04/09/22
[2024-11-26 08:51] VITALS: BP 108/75; PULSE 80
== END 2024-11-26 09:11 | disposition home or self-care (01) ==
LOC: HO.HSM 08:06
PROVIDERS: Visit Provider Nurse Practitioner
DX: R51.9 Headache, unspecified (principal); M96.89 Other intraoperative and postprocedural complications and disorders of the musculoskeletal system; M54.2 Cervicalgia
CPT/HCPCS: 99204

== ENCOUNTER → 2024-11-26 08:06 | Outpatient (BNVA) | payer MEDICARE, SELFPAY | PROVIDERS: Visit Provider Nurse Practitioner | DX: Z71.2 Person consulting for explanation of examination or test findings (principal); M54.2 Cervicalgia; M96.89 Other intraoperative and postprocedural complications and disorders of the musculoskeletal system; R51.9 Headache, unspecified | CPT/HCPCS: 99202 ==

== ENCOUNTER 2025-01-17 13:33 | Outpatient (AMB) | payer OTHER, SELFPAY ==
--- NOTE | 2025-01-17 13:42 | A.OFFVIS_ITS ---
Vital Signs 01/17/25 13:49 Height 4 ft 11 in Weight 139 lb BMI 28.1 BP 118/80 Blood Pressure Location Rt brachial Position Sitting Respiration 16 Pulse 80 Pulse Source Pulse Oximeter Pulse Oximetry (%) 98 Oxygen Delivery Method Room Air Intake Visit Reasons: sooner appt Alcohol Law Enforcement Agent Required: No Accompanied by: Mother Allergies Codeine Sulfate Allergy (Unknown, Uncoded 01/17/25 13:49) Unknown Ibuprofen Allergy (Unknown, Uncoded 01/17/25 13:49) Unknown HPI Comments Details: Teresa is a 38-year-old female patient with a past medical history of opiate use disorder (severity approximately 9-10 years on Suboxone), ADHD, asthma, fatty liver disease, migraine, and mild Chiari 1 malformation with [place] [facility] [place] Leading up to her Chiari decompression she reported occipital headaches, dizziness, and imbalance. Postoperatively after her Chiari decompression surgery in 2023, she developed a CSF leak. This was repaired in November of 2023. She has continue to follow [place] [facility] [place] were be sent evaluations have not been suggestive of any continued complications. I saw her last at [facility] in the spring at which time she reported improvement in her brain fog and headaches over the course of a month leading up to our visit. She did however continued to have some difficulties with sleep and had some ongoing fatigue in the morning. She was experiencing some residual dizziness with positional changes. She was started on gabapentin 100 mg at bedtime with gradual increase to 100 mg 3 times daily. This was ordered in caution with combination Suboxone therapy. She had her most recent follow-up in September of 2024 at which time she reported again that headaches did continue but were less severe than prior. She did continue with a sense of brain fog during the day and headaches again were primarily occipital radiating to the front of her head. She reported some pain to the mid back area and had been working with primary Care to obtain x-ray imaging. At this most recent visit I started her on magnesium 400 mg nightly and continue the gabapentin. I also started a trial of tizanidine 4 mg twice daily for potential myofascial involvement. At the time of her last visit with me at [facility] she explained that she was having some ?good days and bad days?. She was referred back to [facility] who performed an MRI of her spine initially and it was noted she has a seroma of her spine and we had been recommended follow up for this with Neurosurgery. She had not yet seen them at the time of our last visit. She also had reported headaches a couple of times per week though she felt as though she could ?control them and called by rest and relaxation. There were typically subside on their own and rarely will last a few days. Sumatriptan in the past has been helpful. She was experiencing some lightheadedness with irritability, nausea, as well as light and sound sensitivity with her headaches. She also had noted getting some abnormal sensations to her bilateral upper extremities does tingling and feelings of vibration. She denied any weakness or pain. She also had some circumoral numbness which was extending into the area of her right nare. Plan at the time of her last visit: -Follow[place]up [place] [facility] [place] -Continue tizanidine 4mg -Re-start sumatriptan 50mg for breakthrough migraine -obtain imaging from [facility] -Follow-up in 3 months She is here today for a follow up visit after a neurosurgery visit at [facility] to re-evaluate her MRI imaging which includes a cervical seroma. According to the patient today, her Neurosurgery team had no concerns about the seroma however based on description of headaches there was concern raised regarding possibility of elevated intracranial pressure. She did undergo a lumbar puncture with an opening pressure of 27.5. They did not start any oral therapies as they do want to investigate further with imaging studies in efforts to evaluate for the appropriateness of stenting or perhaps ventricular shunt as an alternative to medication options. She has her MRI appointment scheduled for this coming Friday and then we will follow up with Neurosurgery again on the . Headaches since her lumbar puncture have improved slightly though she does still have intermittent headaches described as a pressure sensation and some intermittent blurring of vision/darkening of vision. She also notes that she has had some buzzing and pulsatile tinnitus that has since improved since her lumbar puncture. We did discuss again possibility for Winter-Danlos as playing a role in some of her headaches provided that she has had some myofascial tenderness and has historically been very flexible. She would eventually like to be seen by an Winter-Danlos specialist and consider genetic testing. Review of Systems Const All systems reviewed & are unremarkable except as noted in HPI and below Neuro Reports Sensory deficit (Neuro) Physical Exam Vital Signs: Last Vital Signs Pulse 80 01/17/25 13:49 Resp 16 01/17/25 13:49 BP 118/80 01/17/25 13:49 Pulse Ox 98 01/17/25 13:49 Oxygen Delivery Method Room Air 01/17/25 13:49 BMI result Body Mass Index 28.1 Const General: cooperative, healthy appearing, comfortable and no acute distress Nutritional Appearance: well nourished Orientation/consciousness: patient oriented x3 Limitations: no limitations HEENT Head: Yes normal to inspection and Yes normocephalic Eyes General: appearance normal, both eyes and all related structures Visual Walsh: normal visual walsh by confrontation Alignment and Position: alignment normal Periorbital: periorbital findings normal Eyelids: Yes eyelids normal Conjunctivae: conjunctivae normal Back/Spine/Pelvis Cervical Spine: Cervical spine scars present and other (tenderness to the c- spine midline with palpation ) Neuro General: patient oriented x3, tone normal and deep tendon reflexes 2+ bilaterally Cranial nerves: Yes CN's II-XII intact bilaterally Cognition (Neuro): normal cognition Gait exam (Neuro): Normal gait present Motor exam (neuro): 5/5 motor strength present throughout and no tremor noted Sensory Exam: Sensory deficit (Neuro) and Upper extremity sensory exam abnormal (BUE paresthesia with light touch ) Romberg Test: Negative Pupils: Normal pupillary reactivity/response: bilateral Psych Appearance: grossly normal Mental Status: mental status grossly normal Speech and movement: Normal speech and movement present and Clear speech present Affect: normal affect Attitude: cooperative Thought process: Normal thought process present Thought content: Normal thought content present Insight: Good insight present (Psych) Judgement: Good judgement present (Psych) Assessment & Plan Assessment & Plan (1) Occipital headache: Code(s): R51.9 - Headache, unspecified Category: Medical Plan: . (2) Neck pain after neck surgery: Code(s): M96.89 - Other intraoperative and postprocedural complications and disorders of the musculoskeletal system; M54.2 - Cervicalgia Category: Medical Plan: . (3) IIH (idiopathic intracranial hypertension): Code(s): G93.2 - Benign intracranial hypertension Category: Medical Plan Teresa is a 38-year-old female patient with a past medical history of opiate use disorder (severity approximately 9-10 years on Suboxone), ADHD, asthma, fatty liver disease, migraine, and mild Chiari 1 malformation with decomp[place] July [place] 20[place] [facility] [place] She is following for headaches which may be multifactorial and evolving over time. She originally had migraines and a mild Chiari malformation. After her decompression surgery in July of 2023 she developed a CSF leak and has had intermittent fluctuating headaches. More recently, she had a lumbar puncture showing an elevated opening pressure supporting likelihood of IIH. She is now undergoing further imaging studies to evaluate for structural changes that may be cause for her increased pressure. She was not started on oral therapies and at this point we should hold off on initiating any therapy until she has a imaging which is scheduled for Friday. Historically, tizanidine has been beneficial for her headaches and we can continue this at low dose for now. If she is not a surgical candidate could consider topiramate or acetazolamide for further management. -Contnue low-dose tizanidine -Continue Sumatriptan sparingly -Could consider toipramate 25mg daily for now in the interim -Await further testing from [facility] for tx plan for IIH ([facility] MRI scheduled for this coming Friday) -Eventually would like to consider testing and referral for EDS Coding Level of Care Code Est Pt Level 3 (82757) Diagnoses Occipital headache R51.9 Neck pain after neck surgery M96.89; M54.2 IIH (idiopathic intracranial hypertension) G93.2
[2025-01-17 13:49] VITALS: BP 118/80; PULSE 80; RESP 16; O2SAT 98; BMI 28.1
== END 2025-01-17 14:51 | disposition home or self-care (01) ==
LOC: HO.HSM 13:34
PROVIDERS: Visit Provider Nurse Practitioner
DX: R51.9 Headache, unspecified (principal); M96.89 Other intraoperative and postprocedural complications and disorders of the musculoskeletal system; M54.2 Cervicalgia; G93.2 Benign intracranial hypertension
CPT/HCPCS: 99213

== ENCOUNTER → 2025-01-17 13:33 | Outpatient (BNVA) | payer OTHER, SELFPAY | PROVIDERS: Visit Provider Nurse Practitioner | DX: M51.9 Unspecified thoracic, thoracolumbar and lumbosacral intervertebral disc disorder (principal); M96.89 Other intraoperative and postprocedural complications and disorders of the musculoskeletal system; M54.2 Cervicalgia; G93.2 Benign intracranial hypertension | CPT/HCPCS: 99212 ==

== ENCOUNTER 2025-03-11 08:32 | Outpatient (AMB) | payer OTHER, SELFPAY ==
--- OUTSIDE RECORDS SUMMARY | 2025-03-11 08:34 | XMS_ITS | Data Portability ---
Author Organization [employer] [facility] [facility], [facility] Address [address] [place] [phone] Care Team Providers Care Prepress Operator Name Role Phone ALINEDAVIDROJELIO Primary Care Provider [phone] HIM [facility] OTHER Assessment Encounter Date Assessment Date Assessment LastModified by Organization Details LastModified Time 09/17/2023 09/17/2023 I provided real -time medical direction via phone for this encounter and was available for additional phone-based assistance as needed. I have reviewed and agree with the Assessment and Plan as documented by the Renovator Machine Operator. Patient given the opportunity to ask questions. Our service contacted for an assessment of: cough and upper respiratory symptoms As per above, patient has had a non-productive cough for a day. Denies F/C/N/V/CP/RICHARDSON and SOB. No sick contacts. Taking OTCs without much benefit. Per wax machine operator on the scene, Non-toxic. Stable vitals. No distress. COVID, strep and Flu are all negative. Impression: ? seasonal allergies vs viral URI - differential diagnosis is broad however wax machine operator assessment and limited data are reassuring. Plan: Supportive care and observation. We discussed the diagnostic uncertainty of home visits and the risk associated with this. In this case, the patient and I felt this to be an acceptable and reasonable amount of risk given the benefit of avoiding an ED visit. We discussed the need to seek care urgently/emergentl y in the setting of any new or worsening serious symptoms, particularly fever chills lightheadedness altered mental status [place] [id number] Not available 09/17/2023 11:18:56 Plan of Treatment Reminders Order Date Submit Date Provider Last Modified By Organization Details Last Modified Time Details Appointments None recorded. Lab rapid flu (A+B) 2023 024 [email or web address] [facility], [address] [place] [address], [phone] 4 11:05:50 rapid SARS CoV 2 Ag, QL IA, respiratory specimen [address], [phone] 4 11:05:51 rapid strep group A, throat [address], [phone] 4 11:05:48 Referral None recorded. Procedures None recorded. Surgeries None recorded. Imaging None recorded. Medication Orders None recorded. Patient TargetsNo targets recorded. Patient InstructionsNo instructions recorded. Reason for Referral None Reported. Results Created Date Observation Date Name Description Value Unit Range Abnormal Flag Note LastModifiedBy Organization Detail LastModifiedTime 09/17/1909/17/2023 rapid strep group A, throa t Strep negati ve Not Available [facility] ed [address] [place] [address], [id number] 09/17/2023 11:05:17 09/17/19 24 09/17/2023 rapid SARS CoV 2 Ag, QL IA, respi rator y speci men rapid SARS CoV 2 Ag, QL IA, respiratory specimen negati ve Not Available [facility] ed [address] [place] [address], [phone] 09/17/2023 11:05:16 09/17/19 24 09/17/2023 rapid flu (A+B) Flu negati ve Not Available [address], [phone] 09/17/2023 11:05:14 Result Notes None recorded. Medical Equipment None Reported. Allergies No known drug allergies Medications Name Sig Start Date Stop Date Status Note LastModified by Organization Details LastModified Time dextroampheta mine-amphetam ine 10 mg tablet TAKE 1 TABLET BY MOUTH TWICE DAILY AND 0.5 TABLET EVERY AFTERNOON active Not Available Not Available No t Available medroxyproges terone 5 mg tablet TAKE 1 TABLET BY MOUTH DAILY FOR 10 DAYS WHEN NO MENSES FOR 3 MONTHS active Not Available Not Available No t Available sumatriptan 50 mg tablet TAKE 1 TABLET BY MOUTH NEEDED MAY REPEAT DOSE ONCE AFTER 2 HOURS IF NEEDED active Not Available Not Available No t Available valacyclovir 500 mg tablet TAKE 2 TABLETS BY MOUTH THREE TIMES DAILY FOR 7 DAYS active Not Available Not Available No t Available acyclovir 800 mg tablet TAKE 1 TABLET BY MOUTH FIVE TIMES DAILY FOR 7 DAYS active Not Available Not Available No t Available magnesium oxide 400 mg (241.3 mg magnesium) tablet TAKE 1 TABLET BY MOUTH DAILY active Not Available Not Available No t Available dexamethasone 2 mg tablet active Not Available Not Available Not Available triamcinolone acetonide 0.1 % topical ointment APPLY TOPICALLY TO THE AFFECTED AREA TWICE DAILY FOR 14 DAYS active Not Available Not Available No t Available omeprazole 20 mg capsule,delay ed release active Not Available Not Available N ot Available ondansetron 4 mg disintegratin g tablet active Not Available Not Available Not Available diazepam 5 mg tablet active Not Available Not Available Not Available oxycodone 5 mg tablet active Not Available Not Available No t Available hydroxyzine pamoate 25 mg capsule TAKE 1 CAPSULE BY MOUTH THREE TIMES DAILY NEEDED FOR ANXIETY OR SLEEP active Not Available Not Available No t Available buprenorphine 8 mg-naloxone [address] ONE FILM UNDER TONGUE EVERY DAY active Not Available Not Available No t Available riboflavin (vitamin B2) 400 mg tablet TAKE 1 TABLET BY MOUTH DAILY active Not Available Not Available No t Available Vitals Date Recorded Heart rate Oxygen saturation Body temperature Respiratory rate Body weight Body height Systolic And Diastolic Provider Name and Address Organization Details Last Updated DateTime 4 84 /min 98 % 98.4 [degF] 14 /min 73488.8 g 162.56 cm 120/87 mm[Hg] Not Available [email or web address] production 4 10:57:42 Social History None recorded. Functional Status None recorded. Mental Status None recorded. Family History Nothing Reported. Medical History No medical history recorded. Gynecological HistoryNo gynecological history recorded. Obstetrics History GPAL:G 0 P 0 0 0 0 Past Encounters Encounter ID Performer Location Encounter Start Date Encounter Closed Date Diagnosis/Indication Diagnosis SNOMED-CT Code Diagnosis ICD10 Code Diagnosis IMO Codes Diagnosis Note [id number] Maggie Spain MD [facility] [address] [place] [phone] 09/17/2023 10:57:39 09/17/2023 16:58:22 Inflammatory disorder of upper respiratory tract 388865763 J39.9 Viral uppe r respiratory tract infection [id number] J06.9 Health Concerns Section Related Observation LastModified by Organization Detai ls LastModified Time None Recorded Concern Status LastModified by Organization Details LastModified Time None Recorded Advance Directives Directive None Recorded Payers Insurance Date Sequence Insurance Name Policy Number Policy Wilhelm Covered Member ID Wilhelm Member ID Guarantor Name 09/17/2023 1 [facility] - DOS ON OR AFTER 2022 - DUAL ELIGIBLE - [facility] [employer] AND ONE [employer] (MEDICARE REPLACEMENT/AD VANTAGE - HMO) Teresa Valentine [id number] Teresa Valentine Notes Date Note Type Note Provider Name and Address Organization Details Recorded Time 09/17/2023 text/html [facility] Nurse Triage Notes (Emil Abrams): Reason For Request: sore throat/nausea Chief Complaints: ENT, Weakness/Lethargy Allergies: Unknown Comments: Supervising Librarian verified the member's name//address and phone number. Education provided on the response time and the member was advised to monitor reported s/s and seek emergency treatment if needed.CP reports the member is feeling unwell with a sore throat/congestion with nausea - Low grade fever -Weakness - Denies V/D - Denies CP and SOB - S/S started last night. Wellness check requested Renovator Machine Operator POC Test Results from [facility] - ALS Rapid COVID antigen (10:24:38) COVID: + Rapid influenza antigen (10:24:40) Flu: - Rapid strep test (10:24:41) Strep: + .................. .................. .................. .................. .................. .................. .................. ............... Renovator Machine Operator Note From [facility]: Patient conscious alert and oriented times three seated on couch. Patient complains of nausea and sore throat times 12 hours. Patient states her toddler is just getting over a cold. Patient denies difficulty breathing, chest pain, vomiting, diarrhea, weakness abdominal pain, headache, or any other pain or complaints.Patient warm and dry secondary exam unremarkable. Oral pharynx normal with no red or white spotsPatient negative for Covid flu and strep. [facility] suggests patient take prescribed Zofran on hand post surgery x8 weeks ago and watch for other symptoms. BRAT diet, hydration and supportive care discussed. Red flags discussed, patient with family member. .................. .................. .................. .................. .................. .................. .................. ............... Disposition: Fulfilled Maggie Spain MD [address] [facility],[address], [place], [phone], [employer] [facility] [employer] [facility] [employer] 09/17/2023 18:59:52 OBGyn Episode No OBEpisode recorded.
--- OUTSIDE RECORDS SUMMARY | 2025-03-11 08:34 | XMS_ITS | Clinical Summary ---
Author Organization 175 [facility] Address [address] [facility] [address] Phone Care Team Providers Care Ice Skater Name Role Phone Lara Arteaga MD Primary [...] 1 (one) time each day. 1 each 12 4 Active Ventolin HFA 90 mcg/actuation inhaler INHALE [...] Daily Amount: 1 film 28 each 5 03/31/19 26 Active buprenorphine- naloxone (SUBOXONE) 8-2 mg per [...] Daily Amount: 1 film 28 each 5 03/03/20 25 Discontinu ed(Reorder ) Active Problems Problem Noted Date Diagnosed Date Gilbert's syndrome 12/15/2024 History of cholecystectomy 12/15/2024 Osteoarthritis of cervical spine with myelopathy 09/27/2024 Assessment & Plan (09/27/2024 12:51 PM EDT): See HPI. She will call [facility] to schedule an appointment Osteoarthritis of thoracic spine with myelopathy 09/27/2024 Assessment & Plan (09/27/2024 12:51 PM EDT): See HPI. She will call [facility] to schedule an appointment Osteoarthritis of lumbar spine with myelopathy 0 09/27/2024 Assessment & Plan (09/27/2024 12:51 PM EDT): See HPI. She will call [facility] to schedule an appointment Obesity (BMI 30.0-34.9) 04/14/2024 Assessment & Plan (09/27/2024 12:51 PM EDT): Encouraged to increase her exercise at least 30 minutes a day 5 days a week. Discussed that we have weight management at [facility] and she can be referred if she is interested. She would like to defer this for now and start exercising Assessment & Plan (04/14/2024 12:39 PM EST): Orders: Ambulatory referral to Nutrition Services; Future Hemoglobin A1c; Future Flat feet, bilateral 01/19/2024 Chiari I malformation 11/12/2022 Overview (12/16/2023): MRI brain 10/09/22 ordered by Neurology Last Assessment & Plan: Ms. King describes a multitude of complaints from migraines and brain fog with numbness and tingling in the hands and feet, dizziness, and electrical sensations traveling down her arms. Her MRI of the brain from [facility] on October 09, 2022 shows a Chiari [...] (09/27/2024 12:51 PM EDT): Continue follow-up with [facility] neurology. Has an upcoming appointment this week Assessment & Plan (04/14/2024 12:39 PM EST): See HPI. She was in the emergency room on 03/26/2024 at [facility]. I do not have complete records for review but will addend my note once I do. MRI brain/CT angio head and neck which were done were reportedly negative. She notes she has already had follow-up with her neurosurgeon in [place] and was told no MR myelogram was indicated. I do not have notes from the neurosurgeon. She will follow-up with her neurologist at [facility] as scheduled next month. She will continue the baclofen as needed which she is using sparingly due to the medication making her feel sleepy. Will complete handicap placard for patient. She will drop off form Opioid abuse 11/05/2017 Overview (12/16/2023): Heroin- sober 2 years 03/2018 [...] Continue sumatriptan as needed. Continue follow-up with [facility] neurology. Has an upcoming appointment this week Bipolar disorder 06/25/2006 Attention deficit hyperactivity disorder (ADHD) 06/25/2006 Assessment & Plan (09/27/2024 12:51 PM EDT): Ciontinue f/u with psychiatry Prescribed adderall,guanfacine and valium Heartburn 11/13/2005 Assessment & Plan (09/27/2024 12:51 PM EDT): Continue omeprazole 20 mg as needed Resolved Problems Problem Noted Date Diagnosed Date Resolved Date Back pain 12/22/2008 09/27/2024 Encounters Date Type Department Care Team Description 03/03/2025 5:15 PM EST [facility] [address] [place] [phone] Kalia Busch MD Drug dependence, in remission ([facility] V24, [facility] V28) (Primary Dx); Substance use disorder 02/03/2025 5:00 PM EST [facility] [address] [place] [phone] Kalia Busch MD Drug dependence, in remission ([facility] V24, [facility] V28) (Primary Dx) 01/05/2025 1:15 PM EDT Office Visit Walk-In Clinic - [address] [phone] Mark Duff, KEVEN Upper respiratory infection, acute (Primary Dx) 01/04/2025 5:45 PM EDT [facility] [address] [place] [phone] Kalia Busch MD Drug dependence, in remission ([facility] V24, [facility] V28) (Primary Dx) 12/15/2024 8:20 AM EDT Office Visit Gastroenterology [facility] [address] [phone] Vasquez Grove MD Fatty liver (Primary Dx); Chronic constipation; Gilbert's syndrome; History of cholecystectomy 12/13/2024 Telephone Gastroenterology [facility] 175 [facility] [address] [phone] Vasquez Grove MD from Last 3 Months Immunizations Immunization Administration Dates Next Due Influenza Quadravalent, MDCK [...] r with hyperactivity(314.01) Bipolar disorder, unspecifie d ([facility] V24, [facility] V28) 06/25/2006 DX:Bipolar disorder, unspec ified ([facility]) Migraine without aura, witho ut mention of intractable migraine without mention of status migrainosus 10/16/2006 DX:Migraine with out aura, without mention of intractable migraine without mention of status migrainosus PCOS (polycystic ovarian syndrome) 09/21/2007 DX:PCOS (polycystic ovarian syndrome) Sacroiliitis, not elsewhere classified ([facility] V24) 11/02/2008 DX:Sacroiliitis, not elsewhe re classified ([facility]) Chronic constipation 11/05/2017 DX:Chronic constipation Family history of breast cancer 04/15/2018 DX:Family history of breast cancer Heroin use disorder, severe, in sustained remission ([facility] V24, [facility] V28) DX:Heroin use disorder, lilibeth re, in sustained remission ([facility]) H/O thoracic outlet syndrome DX: H/O thoracic [...] care for your loved ones. For example, school child care attendant or elderly care for an older [...] Date Recorded What is your living situation? Unrecognized valu e 03/26/2024 Comments No Sex and Gender Information Value Date Recorded Sex Assigned at Not on file Legal Sex Female 12:18 AM EST Gender Identity Not on file Sexual Orientation Not on file Last Filed Vital Signs Vital Sign Reading Time Taken Comments Blood Pressure 106/57 03/03/2025 5:27 PM EST Pulse 72 03/03/2025 5:27 PM EST Temperature 36.1 C (97 F) 03/03/2025 5:27 PM EST Respiratory Rate 16 09/27/2024 12:01 PM EDT Oxygen Saturation 98% 03/03/2025 5:27 PM EST Inhaled Oxygen Concentration - - Weight 63.5 kg (140 lb) 12/15/2024 8:28 AM EDT Height 149.9 cm (4' 11 ) 12/15/2024 8:28 AM EDT Body Mass Index 28.28 12/15/2024 8:28 AM EDT Plan of Treatment Upcoming Encounters Date Type Department Care Team (Late st Contact Info) Description 03/31/2025 5:15 PM EST Office Visit [facility] - [facility] [address] [facility] [place] [phone] Kalia Busch MD [address] [place], [place] 06/01/2025 9:00 AM EDT Office Visit [facility] [address] [facility] [place] [phone] Kelsi Billings, [facility] [address] [place] [phone] Health Maintenance Due Date Last Done Comments Naloxone Order 1985 Non-Opioid Controlled Substance Agreement 1985 Opioid Substance Agreement 1985 Pain Assessment 1985 HPV Vaccines (1 - 3-dose SCDM series) 2012 Medicare Annual Wellness Visit 02/23/2022 COVID-19 Vaccine (2024- season) 2024 Influenza Vaccine (#1) 2024 , 01/05/2014, 03/04/2006, Additional history exists Social Influencers of Health Screening 03/26/2025 03/26/2024 Cervical Cancer Screening: HPV 11/03/2025 11/03/2020 Drug Screen 03/03/2026 03/03/2025, 01/16, 01/04/2025, Additional history exists Cholesterol Screening (Lipid Panel) 09/29/2029 09/29/2024, 01/06/2024, 05/08/2022 DTaP,Tdap,and Td Vaccines (4 - Td or Tdap) 02/20/2031 02/20/2021, 03/12/2015, 11/16/2003 RSV Immunization Adult Patients (1 - 1-dose 75+ series) 2060 HIV Screening Completed 10/27/2020 Pneumococcal Vaccine: Pediatrics [...] Procedure Name Priority Date/Time Associated Diagnosis Comments POC , URINE DIAGNOSTIC Routine 03/03/2025 5:31 PM EST Drug dependence, in remission (CMS/HCC V24, CMS/HCC V28) POC URINE DRUG SCREEN Routine 03/03/2025 5:30 PM EST Drug dependence, in remission (CMS/HCC V24, CMS/HCC V28) POC URINE DRUG SCREEN Routine 02/03/2025 5:24 PM EST Drug dependence, in remission (CMS/HCC V24, CMS/HCC V28) POC , URINE DIAGNOSTIC Routine 02/03/2025 5:23 PM EST Drug dependence, in remission (CMS/HCC V24, CMS/HCC V28) POC URINE DRUG SCREEN Routine 01/04/2025 6:09 PM EDT Drug dependence, in remission (CMS/HCC V24, CMS/HCC V28) POC , URINE DIAGNOSTIC Routine 01/04/2025 6:08 PM EDT Drug dependence, in remission (CMS/HCC V24, CMS/HCC V28) HEPATITIS PANEL, ACUTE WITH REFLEX TO CONFIRMATION Routine 11/17/2024 10:00 AM EDT Fatty liver LIPID PANEL WITH REFLEX TO DIRECT LDL Routine 09/29/2024 9:08 AM EDT Screening for metabolic disorder HM HPV Routine 11/03/2020 HM HIV SCREENING Routine 10/27/2020 from Last 3 Months or Most Recently Relevant to Health Maintenance Results * POC , urine manually resulted (03/03/2025 5:31 PM EST) Only the most recent of3 resultswithin the time period is included. Pathologist [facility] HCG, Ur POC Negative Negative Urine Urine specimen obtained by clean catch procedure / Unknown 03/03/2025 5:31 PM EST us Kalia Busch MD POINT OF CARE TEST ENTER/EDIT OR DERABLES Final Result * (ABNORMAL) POC Urine Drug Screen (03/03/2025 5:30 PM EST) Only the most recent of3 resultswithin the time period is included. Pathologist [facility] Amphetamine Screen, Ur POC Negative Negative Barbituates, [...] Ur POC Negative Negative Temperature, Ur POC 96 Urine Urine specimen obtained by clean catch procedure / Unknown 03/03/2025 5:30 PM EST us Kalia Busch MD POINT OF CARE TEST ENTER/EDIT OR DERABLES Final Result * Hepatitis panel, acute with reflex to confirmation (11/17/2024 10:00 AM EDT) [facility] Hepatitis B Surface Ag Negative Negative LAB CHEMISTRY METHOD 11/17/2024 5:43 PM EDT [facility] Hepatitis A Antibody IgM Negative Negative LAB CHEMISTRY METHOD 11/17/2024 5:43 PM EDT [facility] Hep B Core IgM Negative Negative LAB CHEMISTRY METHOD 11/17/2024 5:43 PM EDT [facility] Hepatitis C Antibody Negative Negative LAB CHEMISTRY METHOD 11/17/2024 5:43 PM EDT [facility] Blood Venous blood specimen / Unknown Venipuncture / Unknown 11/17/2024 10:00 AM EDT 11/17/2024 10:00 AM EDT Vasquez Grove MD LAB BLOOD ORDERABLES Final Resul t [facility] [address] [place] [address], [place] [phone] * Lipid panel with reflex to direct LDL (09/29/2024 9:08 AM EDT) Cholesterol 139 0 - 200 mg/dL LAB CHEMISTRY METHOD 09/29/2024 4:00 PM EDT [facility] Triglycerides 78 0 - 150 mg/dL LAB CHEMISTRY METHOD 09/29/2024 4:00 PM EDT [facility] HDL 58 >=40 mg/dL LAB CHEMISTRY METHOD 09/29/2024 4:00 PM EDT [facility] LDL Calculated 65 0 - 100 mg/dL LAB CHEMISTRY METHOD 09/29/2024 4:00 PM EDT [facility] VLDL Cholesterol Raul 15.6 mg/dL LAB CHEMISTRY METHOD 09/29/2024 4:00 PM EDT [facility] Non HDL Chol. (LDL+VLDL) 81 <145 mg/dL LAB CHEMISTRY METHOD 09/29/2024 4:00 PM EDT [facility] Chol/HDL Ratio 2.4 0.0 - 4.4 LAB CHEMISTRY METHOD 09/29/2024 4:00 PM EDT [facility] Blood Venous blood specimen / Unknown Venipuncture / Unknown 09/29/2024 9:08 AM EDT 09/29/2024 9:09 AM EDT Lara Arteaga MD LAB BLOOD ORDERA BLES Final Result [facility] [address] [place] [address], [place] [phone] * Cervical Cancer Screening: HPV (11/03/2020) Cervical Cancer Screening: HPV Abstracted ,Negative Historical Provider HEALTH MAINTENANCE Final Result * HIV Screening (10/27/2020) HIV Screening Abstracted Historical Provider HEALTH MAINTENANCE Final Result from Last 3 Months or Most Recently Relevant to Health Maintenance Insurance Member Subscriber Plan / Payer (Ef fective 2022-Present) Name:PATRICIA KING Relation to Subscriber:Self Name:Patricia King Payer ID:[id number] Group ID:[id number] Type:Not on file Address: [place] [address] [id number] Care Teams Ice Skater Relationship Specialty Start Date End Date Lara Arteaga MD [address] [place] [address] PCP - General 04/09/22
--- NOTE | 2025-03-11 08:53 | A.OFFVIS_ITS ---
Intake Visit Reasons: 3 MO FU Allergies Codeine Sulfate Allergy (Unknown, Uncoded 03/11/25 09:04) Unknown Ibuprofen Allergy (Unknown, Uncoded 03/11/25 09:04) Unknown Medication List - Last Reconciled 03/11/25 by Joelle Quarles CNP buprenorphine-naloxone 8-2 mg (Suboxone) 1 film buccal DAILY dextroamphetamine-amphetamine 10 mg (Adderall) 10 mg PO BID sumatriptan succinate 50 mg PO Q2-4H PRN sumatriptan succinate 50 mg PO Q2-4H PRN tizanidine 4 mg PO BID PRN HPI Comments Details: Teresa is a 39-year-old female patient with a past medical history of opiate use disorder (severity approximately 9-10 years on Suboxone), ADHD, asthma, fatty liver disease, migraine, and mild Chiari 1 malformation with decompression surgery in July of 2023 at [facility]. Leading up to her Chiari decompression she reported occipital headaches, dizziness, and imbalance. Postoperatively after her Chiari decompression surgery in 2023, she developed a CSF leak. This was repaired in November of 2023. She has continued to follow at [facility]. This patient has been followed by Juju Lane CNP and was last seen on 01/17/2025. From 01/17/2025 clinic note: She is here today for a follow up visit after a neurosurgery visit at [facility] to re-evaluate her MRI imaging which includes a cervical seroma. According to the patient today, her Neurosurgery team had no concerns about the seroma however based on description of headaches there was concern raised regarding possibility of elevated intracranial pressure. She did undergo a lumbar puncture with an opening pressure of 27.5. They did not start any oral therapies as they do want to investigate further with imaging studies in efforts to evaluate for the appropriateness of stenting or perhaps ventricular shunt as an alternative to medication options. She has her MRI appointment scheduled for this coming Friday and then we will follow up with Neurosurgery again on the . Headaches since her lumbar puncture have improved slightly though she does still have intermittent headaches described as a pressure sensation and some intermittent blurring of vision/darkening of vision. She also notes that she has had some buzzing and pulsatile tinnitus that has since improved since her lumbar puncture. We did discuss again possibility for Winter-Danlos as playing a role in some of her headaches provided that she has had some myofascial tenderness and has historically been very flexible. She would eventually like to be seen by an Winter-Danlos specialist and consider genetic testing. She requested this appointment be changed to telehealth as she was exposed to the flu and had been having some viral symptoms this week, although she was feeling better today. She had MRI/MRV done which apparently did not show any significant stenosis. No report available at this time. She was started on acetazolamide around the end of 01/2025 by neurosurgery. She tried the medication a few times, but had side effects which included worsening headaches, increased buzzing in ears, increased fatigue, nausea, tingling all over body, itchiness, and change in breathing. She reached out to neurosurgery via her patient portal and was told to stop medication, and that shunt was recommended. She has an appointment with neurosurgery next week to discuss this further. Review of Systems Const All systems reviewed & are unremarkable except as noted in HPI and below Neuro Reports Sensory deficit (Neuro) Physical Exam Const Other: Unable to do due to televisit. Neuro Sensory Exam: Sensory deficit (Neuro) Telehealth Telehealth Telehealth Platform: Telephone Location of provider rendering services: practice address Location of patient: address on file Patient Identification confirmed using: Name, : Yes Telehealth method: voice only Patient verbally consented to treatment: Yes Patient verbally consented to billing insurance company: Yes Assessment & Plan Assessment & Plan (1) Occipital headache: Code(s): R51.9 - Headache, unspecified Category: Medical Plan: . (2) Neck pain after neck surgery: Code(s): M96.89 - Other intraoperative and postprocedural complications and disorders of the musculoskeletal system; M54.2 - Cervicalgia Category: Medical Plan: . (3) IIH (idiopathic intracranial hypertension): Code(s): G93.2 - Benign intracranial hypertension Category: Medical Plan Teresa is a 39-year-old female patient with a past medical history of opiate use disorder (severity approximately 9-10 years on Suboxone), ADHD, asthma, fatty liver disease, migraine, and mild Chiari 1 malformation with decompression surgery in July of 2023 at [facility]. She is following for headaches which may be multifactorial and evolving over time. She originally had migraines and a mild Chiari malformation. After her decompression surgery in July of 2023 she developed a CSF leak and has had intermittent fluctuating headaches. More recently, she had a lumbar puncture showing an elevated opening pressure supporting likelihood of IIH. She apparently had MRI/MRV done through neurosurgeon at [facility] which apparently did not show any significant stenosis. There was no report available at this time for review, will request report. She was started on acetazolamide by neurosurgery, but had side effects and medication was stopped. She has appointment with neurosurgery on 03/14/2025 to further discuss shunt which was apparently recommended as next step. In the mean time, -Continue low-dose tizanidine -Continue Sumatriptan sparingly -Follow up with [facility] to further discuss testing and referral for EDS Coding Level of Care Code Tele Est Pt Level 3 (40100) Diagnoses Occipital headache R51.9 Neck pain after neck surgery M96.89; M54.2 IIH (idiopathic intracranial hypertension) G93.2
== END 2025-03-11 10:13 | disposition home or self-care (01) ==
LOC: HO.HSM 08:32
PROVIDERS: Visit Provider Registered Nurse
DX: R51.9 Headache, unspecified (principal); M96.89 Other intraoperative and postprocedural complications and disorders of the musculoskeletal system; M54.2 Cervicalgia; G93.2 Benign intracranial hypertension
CPT/HCPCS: 99213